=== PATIENT | male | born 1940 | race Caucasian/White ===

== ENCOUNTER 2024-01-21 08:39 | Outpatient (CLI) | payer MEDICARE ==
[~2024-01-21 08:39] MED LIST: ATOR10TA70 PO; BRIM5DRO LEFTEYE; GUAI600T45 PO; LISI1TAB53 PO; LOP25T PO; TRAV5DRO EACHEYE
[2024-01-21 10:01] VITALS: PULSE 60; RESP 15; O2SAT 98
== END 2024-01-21 23:59 | disposition home or self-care (01) ==
LOC: RT 08:39
PROVIDERS: ATTEND Student in an Organized Health Care Education/Training Program
DX: R94.2 Abnormal results of pulmonary function studies (principal); J98.6 Disorders of diaphragm
CPT/HCPCS: 94010; 94729; 94760; J7030